=== PATIENT | male | born 1970 | race Caucasian/White ===

== ENCOUNTER 2021-09-13 11:54 | Day surgery (SDC) | payer BC ==
[2021-09-06 15:21] LABS: BASOPHILS # (AUTO) 0.1 X10'3 (0-0.2); BASOPHILS % (AUTO) 0.7 % (0-1); EOSINOPHILS # (AUTO) 0.2 X10'3 (0-0.9); LYMPHOCYTES # (AUTO) 2.1 X10'3 (1.1-4.8); LYMPHOCYTES % (AUTO) 26.6 % (21-51); MEAN CORPUSCULAR HGB CONC 34.5 g/dL (33.0-36.5); MEAN CORPUSCULAR VOLUME 89.7 FL (78-98); MEAN PLATELET VOLUME 7.6 FL (7.4-10.4); MONOCYTES # (AUTO) 0.5 X10'3 (0-0.9); NEUTROPHILS # (AUTO) 5.1 X10'3 (1.8-7.7); NEUTROPHILS % (AUTO) 63.7 % (42-75); PRE OP HEMOGLOBIN 14.5 g/dL (14.0-17.9); PRE OP PLATELET COUNT 239 X10'3 (140-440); RED BLOOD COUNT 4.68 X10'6 (4.70-6.10); RED CELL DISTRIBUTION WIDTH 13.4 % (11.5-14.5)
[2021-09-06 15:38] LABS: ALBUMIN 4.1 G/DL (3.4-5.0); ALBUMIN/GLOBULIN RATIO 1.3 (1.1-1.5); ALKALINE PHOSPHATASE 83 IU/L (46-116); BLOOD UREA NITROGEN 11 MG/DL (7-18); BUN/CREATININE RATIO 10.9 (5.4-32.0); CHLORIDE 107 MMOL/L (99-107); CREATININE 1.01 MG/DL (0.60-1.10); PRE OP ALT 31 U/L (30-65); PRE OP ANION GAP 10 (8-16); PRE OP AST 18 U/L (10-37); PRE OP BILIRUB, TOTAL 0.8 MG/DL (0.0-1.0); PRE OP GLUCOSE 86 MG/DL (70-104); PRE OP POTASSIUM 4.2 MMOL/L (3.4-5.1); PRE OP SODIUM 142 MMOL/L (135-145); TOTAL CARBON DIOXIDE 24.9 MMOL/L (24-32); TOTAL PROTEIN 7.3 G/DL (6.4-8.2); eGFR 77 ML/MIN
[~2021-09-13] VITALS: Ht 177.8 cm; Wt 97.5 kg
[2021-09-13] VITALS (10 sets, daily range): BP systolic 121–155; BP diastolic 62–92
[~2021-09-13 11:54] MED LIST: ATOR20TA66 PO; MULT-1219 PO; cefazolin/dext.iso 2gm/50ml IV ONE; famotidine 20mg tablet PO ONE; ringers solution, lacted 1,000 ML IV SCH; sevoflurane 250ml liquid IH ONE
[2021-09-13] MEDS ORDERED: morphine 4 MG/ML inj SYRINge IV PRN (13:55)
[2021-09-13] MEDS ORDERED: ringers solution, lacted 1,000 ML IV SCH (13:55)
[2021-09-13] MEDS ORDERED: proCHLORperazine 10 MG/2 ml inj IV PRN (13:55)
[2021-09-13] MEDS ORDERED: ondansetron/PF 4mg/2ml inj IV PRN (13:55)
[2021-09-13] MEDS ORDERED: morphine 2 MG/ML inj. syringe IV PRN (13:55)
[2021-09-13] MEDS ORDERED: meperidine/PF 25mg/ml syringe IV PRN ×3 (13:55)
[2021-09-13] MEDS ORDERED: BUPIVAcaine/PF 2.5mg/ml (0.25%) 10ml vial ONE ×2 (14:27→15:03)
[2021-09-13] MEDS ORDERED: LIDOcaine 1% 30ml preserv. free vial ONE (14:27)
[2021-09-13] MEDS ORDERED: midazolam 1 mg/ML 2ml injection ONE (14:49)
[2021-09-13] MEDS ORDERED: fentaNYL/PF 50MCG/1 ML 2ML syringe ONE (14:49)
[2021-09-13] MEDS ORDERED: propofol inj 20 ML IV ONE (14:53)
[2021-09-13] MEDS ORDERED: dexamethasone sod phosphate 4mg/ml inj. ONE (16:11)
[2021-09-13] MEDS ORDERED: neostigmine methylsulfate 1 MG/ML 10ml vial ONE (16:11)
[2021-09-13] MEDS ORDERED: glycopyrrolate 0.2mg/ml inj ONE (16:11)
[2021-09-13] MEDS ORDERED: rocuronium 10mg/ml inj IV ONE (16:11)
[2021-09-13] MEDS ORDERED: ondansetron/PF 4mg/2ml inj ONE (16:12)
[2021-09-13] MEDS ORDERED: HYDROcodone/acetaminophen 5mg/325mg tablet PO PRN (16:20)
--- NOTE | 2021-09-13 16:25 | NUR ---
ADMITTED TO PACU FROM OR ACCOMPANIED BY ANESTHESIA. INTIAL PHYSICAL ASSESSMENT DONE AND RECORDED. REPORT RECEIVED FROM ANESTHESIA.
--- NOTE | 2021-09-13 18:00 | NUR ---
DISCHARGE CRITERIA MET, DISCHARGE INSTRUCTIONS GIVEN, DEMONSTRATES VERBAL UNDERSTANDING. DISCHARGED HOME IN GOOD CONDITION. DISCHARGE INSTRUCTIONS GIVEN TO MOTHER OVER PHONE, VERBALIZES UNDERSTANDING, HANDED PRINTED DISCHARGE PAPERS TO MOTHER IN CAR ALONG WITH PRESCRIPTION FOR [place].
== END 2021-09-13 18:00 | disposition home or self-care (01) ==
LOC: PAS 11:54
PROVIDERS: ATTEND Surgery
DX: K40.90 Unilateral inguinal hernia, without obstruction or gangrene, not specified as recurrent (principal); E78.00 Pure hypercholesterolemia, unspecified; F17.210 Nicotine dependence, cigarettes, uncomplicated; Z20.822 Contact with and (suspected) exposure to COVID-19; Z79.899 Other long term (current) drug therapy; Z98.890 Other specified postprocedural states
CPT/HCPCS: 36415; 49650; 80053; 82948; 85025; 93005; C1781; J0690; J1100; J2250; J2405; J2704; J2710; J3010; J3490; J7030; J7120; S2900; U0003; U0005; Z7506; Z7508; Z7512; A4215; A4618